=== PATIENT | female | born 1980 | race American Indian/Alaskan Native ===

== ENCOUNTER 2016-08-29 07:04 | Inpatient (IN) | payer OTHER ==
[2016-08-29 08:11] LABS: Basophils % (Auto) 0.3 % (0.0-1.8); Eosinophils % (Auto) 2.9 % (0.0-4.3); Hematocrit 35.6 % (30.3-42.9); Hemoglobin 11.2 gm/dl (10.1-14.3); Mean Corpuscular HGB Conc 32 % (30-34); Mean Corpuscular Hemoglobin 26 pg (28-32); Mean Corpuscular Volume 83 fl (79-97); Platelet Count 209 K/mm3 (140-440); Red Blood Count 4.28 M/mm3 (3.65-5.03); Red Cell Distribution Width 15.2 % (13.2-15.2)
[2016-08-29 08:20] LABS: Anion Gap 15 mmol/L; BUN/Creatinine Ratio 17.14; Blood Urea Nitrogen 12 mg/dL (7-17); Calcium 8.7 mg/dL (8.4-10.2); Carbon Dioxide 25 mmol/L (22-30); Glucose 150 mg/dL (65-100); Potassium 4.2 mmol/L (3.6-5.0); Sodium 141 mmol/L (137-145)
[2016-08-29 09:06] LABS: Bilirubin,Urine NEG (Negative); Blood,Urine SM (Negative); Ketones,Urine NEG (Negative); Leukocyte Esterase,Urine NEG (Negative); Mucus,Urine FEW /HPF; Nitrite,Urine NEG (Negative); Protein,Urine <15 mg/dL mg/dL (Negative); Urobilinogen,Urine < 2.0 mg/dL (<2.0)
--- NOTE | 2016-08-29 09:36 | Emergency Department Report ---
ED Chest Pain HPI - General Chief Complaint: Chest Pain Stated Complaint: CP Time Seen by Provider: 08/29/16 09:34 Source: patient, EMS Mode of arrival: Stretcher Limitations: No Limitations - History of Present Illness Initial Comments: Patient states that her her were watching a movie at 5 AM when she developed substernal chest pressure. She states that she felt like there was a heavy weight on her chest. She had some discomfort in the inner aspect of her right arm radiated almost to the wrist. The chest pain has subsided now. She states that she has some difficulty in breathing. She denies any cough or pleuritic type chest pain. She states that she has had a headache for the last 4-5 days intermittently. She's had no focal weakness numbness photophobia neck discomfort fever or chills. She does not complain of any acute leg swelling. She denies leg pain. The patient is a poor historian. She states that she was having a blood transfusion about a year ago for what I presume to be dysfunctional uterine bleeding. She states that "blood clots went through her lungs". She denies being told she had a blood clot in her legs or a pulmonary embolism. She denies being on anticoagulation after being discharged from the hospital. It sounds like she may have had a nuclear medicine study at one point. It is unknown which type. The patient stated that she was 250 pounds at the time of this test. She states that she has for 30 now. She states that she has gone to the emergency department for chest pain in the past but has never been admitted. The patient can give no specific history of myocardial infarction in her family no specific history of VTE in her family. Complaint: chest pain -: Gradual Onset: during rest Pain Location: substernal Pain Radiation: RUE Severity: moderate Quality: heaviness Consistency: now resolved Improves With: nothing Worsens With: nothing re: dyspnea. denies: nausea, vomting, diaphoresis Other Symptoms: denies: cough, fever, syncope Treatments Prior to Arrival: none Aspirin use within the Past 7 Days: (0) No - Related Data On Oral Contraceptives: No Previous Rx's Medication Instructions Recorded Last Taken Type Ibuprofen [Motrin 600 MG tab] 600 mg PO Q6H PRN #30 tablet 10/16/13 Unknown Rx oxyCODONE /ACETAMINOPHEN [Percocet 2 tab PO Q4H PRN #40 tablet 10/16/13 Unknown Rx 5/325 mg] Antipyrine/Benzocaine 14 ml OT Q3H PRN #1 bottle 12/30/13 Unknown Rx [Antipyrine-Benzocaine Otic Senait] Cephalexin [Keflex] 500 mg PO TID #30 capsule 12/30/13 Unknown Rx Nitrofurantoin [place]/M-Cryst 100 mg PO Q12HR #10 capsule 03/20/14 Unknown Rx [Macrobid] traMADol [Ultram 50 MG tab] 50 mg PO Q6HR PRN #14 tablet 03/20/14 Unknown Rx HYDROcodone/APAP 10-325 [[place] 1 each PO Q6HR PRN #8 tablet 01/09/15 Unknown Rx 10/325] Ondansetron [Zofran Odt] 4 mg SL Q6H PRN #8 tab.rapdis 01/09/15 Unknown Rx Allergies Allergy/AdvReac Type Severity Reaction Status Date / Time ciprofloxacin [From Cipro] AdvReac Itching Verified 09/30/13 10:04 ciprofloxacin HCl AdvReac Itching Verified 09/30/13 10:04 [From Cipro] ibuprofen [From Motrin] AdvReac Itching Verified 09/30/13 10:04 Heart Score - HEART Score History: Moderately suspicious EKG: Normal Age: < 45 Risk factors: 1-2 risk factors Troponin: < normal limit HEART Score: 2 - Critical Actions Critical Actions: 0-3 pts:0.9-1.7%risk of adverse cardiac event.Candidate for discharge ED Review of Systems ROS: Stated complaint: CP Other details as noted in HPI Constitutional: denies: chills, fever Eyes: denies: eye pain, eye discharge, vision change ENT: denies: ear pain, throat pain Respiratory: shortness of breath. denies: cough, wheezing Cardiovascular: chest pain. denies: palpitations Endocrine: no symptoms reported Gastrointestinal: denies: abdominal pain, nausea, diarrhea Genitourinary: denies: urgency, dysuria, discharge Musculoskeletal: denies: back pain, joint swelling, arthralgia Skin: denies: rash, lesions Neurological: denies: headache, weakness, paresthesias Psychiatric: denies: anxiety, depression Hematological/Lymphatic: denies: easy bleeding, easy bruising ED Past Medical Hx - Past Medical History Previous Medical History?: Yes Hx Hypertension: No Hx Diabetes: Yes (BOARDERLINE 08/2013) Hx Renal Disease: No Hx Seizures: No Hx Asthma: No Additional medical history: "heart murmur" "PCOS" "anemia". Morbid obesity - Surgical History Past Surgical History?: Yes Additional Surgical History: D & C - Social History Smoking Status: Never Smoker Substance Use Type: Alcohol - Medications Home Medications: Home Medications Medication Instructions Recorded Confirmed Last Taken Type Ibuprofen [Motrin 600 MG tab] 600 mg PO Q6H PRN #30 tablet 10/16/13 Unknown Rx oxyCODONE /ACETAMINOPHEN [Percocet 2 tab PO Q4H PRN #40 tablet 10/16/13 Unknown Rx 5/325 mg] Antipyrine/Benzocaine 14 ml OT Q3H PRN #1 bottle 12/30/13 Unknown Rx [Antipyrine-Benzocaine Otic Senait] Cephalexin [Keflex] 500 mg PO TID #30 capsule 12/30/13 Unknown Rx Nitrofurantoin [place]/M-Cryst 100 mg PO Q12HR #10 capsule 03/20/14 Unknown Rx [Macrobid] traMADol [Ultram 50 MG tab] 50 mg PO Q6HR PRN #14 tablet 03/20/14 Unknown Rx HYDROcodone/APAP 10-325 [[place] 1 each PO Q6HR PRN #8 tablet 01/09/15 Unknown Rx 10/325] Ondansetron [Zofran Odt] 4 mg SL Q6H PRN #8 tab.rapdis 01/09/15 Unknown Rx ED Physical Exam - General Limitations: Physical Limitation General appearance: alert, in no apparent distress, obese - Head Head exam: Present: atraumatic, normocephalic - Eye Eye exam: Present: normal appearance, PERRL, EOMI. Absent: scleral icterus - ENT ENT exam: Present: normal exam, mucous membranes moist - Neck Neck exam: Present: normal inspection - Respiratory Respiratory exam: Present: normal lung sounds bilaterally. Absent: respiratory distress - Cardiovascular Cardiovascular Exam: Present: regular rate, normal rhythm. Absent: systolic murmur, diastolic murmur, rubs, gallop - GI/Abdominal GI/Abdominal exam: Present: soft, normal bowel sounds. Absent: distended, tenderness, guarding, rebound - Extremities Exam Extremities exam: Present: normal inspection, normal capillary refill. Absent: tenderness, calf tenderness - Back Exam Back exam: Present: normal inspection - Neurological Exam Neurological exam: Present: alert, oriented X3, CN II-XII intact. Absent: reflexes normal - Psychiatric Psychiatric exam: Present: normal affect, normal mood - Skin Skin exam: Present: warm, dry, intact, normal color. Absent: rash ED Course Vital Signs 08/29/16 08/29/16 07:36 07:42 Temperature 97.6 F Pulse Rate 92 H 93 H Respiratory 16 16 Rate Blood Pressure 138/84 O2 Sat by Pulse 99 99 Oximetry - Reevaluation(s) Reevaluation #1: The patient was admitted to the hospitalist service in stable condition. Her chest pain resolved. Obviously her workup will be limited secondary to her kilogram weight. At this time her preliminary tests are negative. 08/29/16 11:21 MICHELL score - Michell Score Age > 65: (0) No Aspirin use within the Past 7 Days: (0) No 3 or more CAD Risk Factors: (0) No 2 or more Angina events in past 24 hrs: (0) No Known CAD with more than 50% Stenosis: (0) No Elevated Cardiac Markers: (0) No ST Deviation Greater than 0.5mm: (0) No MICHELL Score: 0 ED Medical Decision Making - Lab Data Result diagrams: 08/29/16 07:50 08/29/16 07:50 Laboratory Results - last 24 hr 08/29/16 08/29/16 08/29/16 07:50 07:50 08:45 WBC 6.0 RBC 4.28 Hgb 11.2 Hct 35.6 MCV 83 MCH 26 L MCHC 32 RDW 15.2 Plt Count 209 Lymph % (Auto) 38.8 H [place] % (Auto) 10.5 H Eos % (Auto) 2.9 Baso % (Auto) 0.3 Lymph # 2.3 [place] # 0.6 Eos # 0.2 Baso # 0.0 Seg Neutrophils % 47.5 Seg Neutrophils # 2.8 Sodium 141 Potassium 4.2 Chloride 105.0 Carbon Dioxide 25 Anion Gap 15 BUN 12 Creatinine 0.7 Estimated GFR > 60 BUN/Creatinine Ratio 17.14 Glucose 150 H Calcium 8.7 Troponin T < 0.010 Urine Color Yellow Urine Turbidity Clear Urine pH 6.0 Ur Specific Elk 1.024 Urine Protein <15 mg/dl Urine Glucose (UA) Neg Urine Ketones Neg Urine Blood Sm Urine Nitrite Neg Urine Bilirubin Neg Urine Urobilinogen < 2.0 Ur Leukocyte Esterase Neg Urine WBC (Auto) 1.0 Urine RBC (Auto) 3.0 U Epithel Cells (Auto) 1.0 Urine Mucus Few Urine HCG, Qual Negative Laboratory Results - last 24 hr 08/29/16 08/29/16 08/29/16 07:50 07:50 08:45 WBC 6.0 RBC 4.28 Hgb 11.2 Hct 35.6 MCV 83 MCH 26 L MCHC 32 RDW 15.2 Plt Count 209 Lymph % (Auto) 38.8 H [place] % (Auto) 10.5 H Eos % (Auto) 2.9 Baso % (Auto) 0.3 Lymph # 2.3 [place] # 0.6 Eos # 0.2 Baso # 0.0 Seg Neutrophils % 47.5 Seg Neutrophils # 2.8 PT INR APTT D-Dimer Sodium 141 Potassium 4.2 Chloride 105.0 Carbon Dioxide 25 Anion Gap 15 BUN 12 Creatinine 0.7 Estimated GFR > 60 BUN/Creatinine Ratio 17.14 Glucose 150 H Calcium 8.7 Total Bilirubin Direct Bilirubin AST ALT Alkaline Phosphatase Troponin T < 0.010 NT-Pro-B Natriuret Pep Total Protein Albumin Albumin/Globulin Ratio Urine Color Yellow Urine Turbidity Clear Urine pH 6.0 Ur Specific [place] 1.024 Urine Protein <15 mg/dl Urine Glucose (UA) Neg Urine Ketones Neg Urine Blood Sm Urine Nitrite Neg Urine Bilirubin Neg Urine Urobilinogen < 2.0 Ur Leukocyte Esterase Neg Urine WBC (Auto) 1.0 Urine RBC (Auto) 3.0 U Epithel Cells (Auto) 1.0 Urine Mucus Few Urine HCG, Qual Negative 08/29/16 08/29/16 08/29/16 10:01 10:01 10:01 WBC RBC Hgb Hct MCV MCH MCHC RDW Plt Count Lymph % (Auto) [place] % (Auto) Eos % (Auto) Baso % (Auto) Lymph # [place] # Eos # Baso # Seg Neutrophils % Seg Neutrophils # PT 12.8 INR 0.92 APTT 28.8 D-Dimer 159.09 Sodium Potassium Chloride Carbon Dioxide Anion Gap BUN Creatinine Estimated GFR BUN/Creatinine Ratio Glucose Calcium Total Bilirubin < 0.20 Direct Bilirubin < 0.2 AST 14 ALT 14 Alkaline Phosphatase 91 Troponin T < 0.010 NT-Pro-B Natriuret Pep 10.24 Total Protein 7.2 Albumin 3.5 L Albumin/Globulin Ratio 0.9 Urine Color Urine Turbidity Urine pH Ur Specific [place] Urine Protein Urine Glucose (UA) Urine Ketones Urine Blood Urine Nitrite Urine Bilirubin Urine Urobilinogen Ur Leukocyte Esterase Urine WBC (Auto) Urine RBC (Auto) U Epithel Cells (Auto) Urine Mucus Urine HCG, Qual - EKG Data EKG shows normal: sinus rhythm, axis, intervals, QRS complexes, ST-T waves Rate: normal - EKG Data Interpretation: normal EKG - Radiology Data interpreted by me: Consider cardiomegaly on chest x-ray no decompensation Critical care attestation.: If time is entered above; I have spent that time in minutes in the direct care of this critically ill patient, excluding procedure time. ED Disposition Clinical Impression: Hyperglycemia Chest pain Qualifiers: Chest pain type: unspecified Qualified Code(s): R07.9 - Chest pain, unspecified Morbid obesity Qualifiers: Obesity type: due to excess calories Qualified Code(s): E66.01 - Morbid (severe ) obesity due to excess calories Disposition: 09 OP ADMIT IP TO THIS HOSP Is pt being admited?: Yes Does the pt Need Aspirin: Yes Condition: Stable Instructions: Chest Pain (ED) Referrals: JUSTIN RANDALL MD, PHD [Primary Care Provider] - 3-5 Days Time of Disposition: 11:23
--- NOTE | 2016-08-29 10:15 | XRay Report ---
AP CHEST: HISTORY: Hypertension AP view of the chest demonstrates a normal mediastinal and cardiac contour with clear lungs and normal bony and soft tissue structures. IMPRESSION: Unremarkable AP chest.
[2016-08-29 10:32] LABS: INR 0.92 (0.87-1.13)
[2016-08-29 10:33] LABS: Partial Thromboplastin Time 28.8 Sec. (24.2-36.6)
[2016-08-29 10:35] LABS: Alanine Aminotransferase 14 units/L (7-56); Albumin 3.5 g/dL (3.9-5); Albumin/Globulin Ratio 0.9 %; Alkaline Phosphatase 91 units/L (35-129); Bilirubin,Total < 0.20 mg/dL (0.1-1.2); Total Protein 7.2 g/dL (6.3-8.2)
[2016-08-29 10:41] LABS: Bilirubin,Direct < 0.2 mg/dL (0-0.2)
[2016-08-29] MEDS ORDERED: MORPHINE IV PRN (11:14)
[2016-08-29] MEDS ORDERED: ZOFRAN IV PRN (11:14)
[2016-08-29] MEDS ORDERED: TYLENOL PO PRN (11:14)
[2016-08-29] MEDS ORDERED: MILK OF MAGNESIA PO PRN (11:14)
[2016-08-29] MEDS ORDERED: DULCOLAX PR PRN (11:14)
[2016-08-29] MEDS ORDERED: NITROSTAT SL PRN (11:21)
--- NOTE | 2016-08-29 11:59 | Admit Criteria Form ---
Admission Criteria Documentation: CARDIOLOGY GRG Clinical Indications for Admission to Inpatient Care ( Place 'X' for any and all applicable criteria): Hospital admission is needed for appropriate care of the patient because of ANY ONE of the following (1): [ ] I. Hemodynamic instability as indicated by ALL of the following (1)(2)(3) (4)(5) [ ]a) Vital signs or other findings not as expected for chronic patient condition or baseline [ ]b) Instability indicated by ANY ONE of the following: [ ]i) Hypotension [ ]ii) Symptomatic Tachycardia unresponsive to treatment ( e.g., analgesia, fluids, sedation as indicated) [ ]iii) Inadequate perfusion indicated by ANY ONE of the following: [ ] 1) Lactic acidosis (> 2 mmol/L) [ ] 2) New abnormal capillary refill (> 3 seconds) [ ] 3) Reduced urine output [ ] 4) New altered mental status [ ]iv) Orthostatic vital sign changes unresponsive to treatment (e.g., fluids) [ ]v) IV inotropic or vasopressor medication required to maintain adequate blood pressure or perfusion [ ] II. Severe heart failure as indicated by ANY ONE of the following(17)(18) [ ]a) Respiratory distress [ ]b) Hypotension [ ]c) Anasarca (refractory to outpatient therapy) [ ]d) Cardiac arrhythmias of immediate concern [ ]e) Myocardial ischemia [ ] III. Cardiac arrhythmias or findings of immediate concern indicated by ANY ONE of the following (19)(20): [ ] a) Heart rhythms that are inherently dangerous or unstable indicated by ANY ONE of the following (21)(22)(23): [ ] i) Resuscitated ventricular fibrillation or cardiac arrest [ ] ii) Ventricular escape rhythm [ ] iii) Sustained ventricular tachycardia (30 seconds or more of ventricular rhythm at greater than 100 beats per minute) [ ] iv) Nonsustained ventricular tachycardia and ANY ONE of the following: [ ] 1) Suspected cardiac ischemia as cause or consequence of ventricular tachycardia [ ] 2) In setting of acute myocarditis [ ] b) Unstable cardiac conduction defects indicated by ANY ONE of the following(23)(24)(25) [ ] i) Type II second-degree atrioventricular block [ ]ii) Third-degree atrioventricular block [ ]iii) New-onset left bundle branch block with suspected myocardial ischemia [ ]c) Any heart rhythm and ANY ONE of the following (21)(22)(26)(27) (28) [ ] i) Continuous long-term ECG monitoring needed (e.g., initiation of drug requiring monitoring for more than 24 hours) [ ] ii) Patient has automatic implanted cardioverter defibrillator that is repeatedly firing, malfunctioning, or in need of immediate adjustment of settings beyond the scope of ambulatory or observation care [ ]d) Heart rhythms of concern due to ANY ONE of the following: [ ] i) Hypotension [ ] ii) Respiratory distress [ ] iii) Association with other significant symptoms (e.g., bradycardia with syncope or ongoing dizziness, supraventricular tachycardia with chest pain (14)(15)(17) [ ] IV. Monitoring for cardiac contusion beyond the scope of observation care needed [A](30)(31)(32) [ ] V. Surgical or device complication (e.g., valve replacement complication , pacemaker dysfunction) (35)(41)(44)(45)(46) [ ] . Inpatient palliative care needed. [B](49) Also use Inpatient Palliative Care Criteria [ ] VII. Nonbacterial thrombotic (marantic) endocarditis (36)(43)(47)(48) [X] VIII. Cardiology condition, symptom, or finding for which emergency and observation care has failed or are not considered appropriate. [ ] IX. Acute valvular disease requiring inpatient as indicated by ANY ONE of the following (41) [ ]a) Acute valvular regurgitation (42) [ ]b) Noninfectious valvulitis (43) [ ]c) Obstructive valve thrombosis [ ]d) Paravalvular leak [ ]e) Other significant valvular disorder remaining after emergency or observation level of care (as appropriate) [ ]X. Pericardial disease requiring inpatient treatment as indicated by ANY ONE of the following (33)(34)(35)(36)(37) [ ]a) Suspected tamponade (38)(39)(40) [ ]b) Hemopericardium [ ]c) Other significant pericardial disorder remaining after emergency or observation level of care (as appropriate) [ ] XI. Cardiac ischemia beyond scope of emergency and observation care. [ ] XII. Hypertension requiring inpatient treatment as indicated by ANY ONE of the following (6)(7)(8) [ ]a) SBP greater than 220 mm Hg or DBP greater than 120 mmHg despite treatment [ ]b) SBP greater than 140 mm Hg or DBP greater than 100 mm Hg with evidence of acute end organ damage as indicated by ANY ONE of the following [ ] i) Altered mental status [ ] ii) Acute renal failure as indicated by new onset of ANY ONE of the following (9)(10)(11)(12)(13) [ ]1) 3-fold rise in serum creatinine from baseline [ ]2) Serum creatinine greater than 4 mg/dL ( 354 micromoles/L) with acute rise greater than 0.5 mg/dL (44.2 micromoles/L) [ ]3) Reduction of more than 75% in estimated glomerular filtration rate from baseline [ ]4) Estimated glomerular filtration rate less than 35 mL/min/1.73m2 (0.59 mL/sec/1.73m2) in child up to 18 years of age [ ]5) Cessation of urine output indicated by ALL of the following [ ]A. Adequate volume status [ ]B. Inadequate urine output as indicated by ANY ONE of the following [ ]a. Urine output less than 0.3 mL/kg/hr for 24 hours [ ]b. Anuria (urine output less than 0.1 mL/kg/hr) for 12 hours [ ] iii) Aortic dissection [ ] iv) Myocardial Ischemia [ ] v) Left ventricular heart failure [ ]vi) Retinal Hemorrhage [ ]vii) Other significant finding [ ]c) Hypertension in child requiring inpatient treatment as indicated by ALL of the following(14)(15)(16) [ ] i) Outpatient treatment not effective, not available, or not appropriate [ ]ii) SBP or DBP greater than 95th percentile for age [ ]iii) Evidence of acute end organ damage as indicated by ANY ONE of the following [ ]1) Altered mental status [ ]2) Acute renal failure as indicated by new onset of ANY ONE of the following(9)(10)(11)(12)(13) [ ]A. 3-fold rise in serum creatinine from baseline [ ]B. Serum creatinine greater than 4 mg/dL (354 micromoles/L) with acute rise greater than 0.5 mg/dL (44.2 micromoles/L) [ ]C. Reduction of more than 75% in estimated glomerular filtration rate from baseline [ ]D. Estimated glomerular filtration rate less than 35 mL/min/1.73m2 (0.59 mL/sec/1.73m2) in child up to 18 years of age [ ]E. Cessation of urine output indicated by ALL of the following [ ]a. Adequate volume status [ ]b. Inadequate urine output as indicated by ANY ONE of the following [ ]i) Urine output less than 0.3 mL/kg/hr for 24 hours [ ]ii) Anuria ( urine output less than 0.1 mL/kg/hr) for 12 hours [ ]3) Severe headache [ ]4) Visual disturbance [ ]5) Retinal hemorrhage [ ]6) Other significant finding [ ]XIII. Complications of transplanted heart indicated by ANY ONE of the following(61): [ ]a) Acute graft rejection requiring inpatient management (eg, intravenous immunosuppression)(62)(63) [ ]b) Acute graft heart failure indicated by ANY ONE of the following(64): [ ]i) Hemodynamic instability [ ]ii) Cardiac arrhythmias of immediate concern [ ]iii) Pulmonary edema that is very severe (eg, mechanical ventilation needed, imminent or likely, need for 100% oxygen to keep oxygen saturation above 90%) [ ]iv) Pulmonary edema that is persistent as indicated by ALL of the following: [ ]1) New need for oxygen therapy to keep oxygen saturation above 90% (or increased FiO2 need from baseline) [ ]2) Has not improved sufficiently with emergency department or observation care IV diuretics or other heart failure treatments[E] [ ]v) Altered mental status that is severe or persistent [ ]vi) Increased creatinine (new on laboratory test) with reduction of more than 50% in estimated glomerular filtration rate from baseline [ ]vii) Progressively (ongoing) rising creatinine (known from past laboratory test) with reduction of more than 25% in estimated glomerular filtration rate from baseline [ ]viii) Acute renal failure [ ]ix) Acute peripheral ischemia (eg, examination shows pulseless, cool, mottled, or cyanotic extremity) [ ]x) Pulmonary artery catheter monitoring needed [ ]xi) Other sign or symptom of heart failure requiring inpatient treatment (ie, too severe or not responsive to outpatient and observation care treatment) [ ]c) Infection requiring inpatient management (eg, Hemodynamic instability, need for intravenous antimicrobial treatment)(66)(67)(68)(69)(70) [ ]d) Cardiac allograft vasculopathy requiring inpatient management ( eg evidence of cardiac ischemia)(71) [ ]e) Other complication of transplanted heart (eg, stroke, severe pulmonary hypertension, severe valvular dysfunction) requiring inpatient management(72) The original [facility] [employer] content created by [facility] has been revised. The portions of the content which have been revised are identified through the use of italic text or in bold, and [facility] has neither reviewed nor approved the modified material. All other unmodified content is copyright [facility]. Please see references footnoted in the original [facility] edition 2016 Admission Criteria Met: Yes
--- NOTE | 2016-08-29 12:07 | History and Physical Report ---
History of Present Illness Date of examination: 08/29/16 Date of admission: 08/29/16 11:14 Chief complaint: Chest Pain History of present illness: Patient is a 31 years old male with past history of hypertension, obese, heavy menstrual cycle and migraine who presented to the ED complaining of chest pain. Patient states that the pain began today around 6:00AM consisted of a sharp pain that lasted around 1minuts , followed by a dull pain that would last around 5-10 minutes. The pain was located over her left chest area somewhat near her shoulder. The onset of pain came while the patient was watching TV. the pain is substernal and she also feels it under the left side of her chest in the midclavicular region; she describes the quality as a chest heaviness / pressure The patient did experience some tingling in her right arm after the pain ceased. The pain goes and come since started this morning. Once again it was a dull pain, preceded by a short interval of a sharp pain. At first, she felt a pressure pain that was 9/10 but eventually it became more crampy and is currently 1/10. The painful episodes did not increase in intensity or severity during this time. She did not take any medication, she was given Aspirin by EMS but did not help to alleviate the pain. The symptoms exacerbating by movement and relieving by rest.The pain was associated with a feeling of shortness of breath, heart palpitations and and sweating;The patient describes her shortness of breath ;she felt like she could not catch her breath and got worried so she called 911 and they brought her to the ED. She denies nausea or vomiting Past History Past Medical History: diabetes (obese, she was told borderline DM with AC1 >6), hypertension, migraines, other (obese, she was told borderline DM with AC1 >6) Past Surgical History: denies: No surgical history Social history: lives with family, full code. denies: smoking, alcohol abuse, IV drug use Family history: hypertension Medications and Allergies Allergies Allergy/AdvReac Type Severity Reaction Status Date / Time ciprofloxacin [From Cipro] AdvReac Itching Verified 09/30/13 10:04 ciprofloxacin HCl AdvReac Itching Verified 09/30/13 10:04 [From Cipro] ibuprofen [From Motrin] AdvReac Itching Verified 09/30/13 10:04 Home Medications Medication Instructions Recorded Confirmed Last Taken Type Naproxen Sodium [Aleve TAB] 220 mg PO Q8H PRN 08/29/16 08/29/16 Unknown History metFORMIN [Glucophage] 500 mg PO BID 08/29/16 08/29/16 Unknown History Active Meds: Active Medications Acetaminophen (Tylenol) 650 mg PO Q4H PRN PRN Reason: Pain MILD(1-3)/Fever >100.5/BRAND Aspirin (Aspirin) 325 mg PO QDAY DADA Bisacodyl (Dulcolax) 10 mg IA QDAY PRN PRN Reason: Constipation unrelieved by MOM Enoxaparin Sodium (Lovenox) 40 mg SUB-Q QDAY DADA Magnesium Hydroxide (Milk Of Magnesia) 30 ml PO Q4H PRN PRN Reason: Constipation Morphine Sulfate (Morphine) 2 mg IV Q4H PRN PRN Reason: Pain, Moderate (4-6) Nitroglycerin (Nitrostat) 0.4 mg SL .Q5MIN PRN PRN Reason: Chest Pain Ondansetron HCl (Zofran) 4 mg IV Q8H PRN PRN Reason: N/V unrelieved by Reglan Review of Systems Constitutional: sweats, no weight gain, no fever, no chills Ears, nose, mouth and throat: no ear pain, no ear discharge, no tinnitis Breasts: deferred Cardiovascular: chest pain, palpitations, lightheadedness, shortness of breath, no edema, no syncope Respiratory: no cough, no cough with sputum, no excessive sputum Gastrointestinal: no abdominal pain, no nausea, no vomiting Genitourinary Female: no dyspareunia, no dysmenorrhea, no pelvic pain, no flank pain Musculoskeletal: no neck stiffness, no neck pain, no shooting arm pain, no arm numbness/tingling Integumentary: no rash, no pruritis, no redness Neurological: no head injury, no transient paralysis, no paralysis, no weakness Psychiatric: no anxiety, no memory loss, no change in sleep habits Endocrine: no cold intolerance, no heat intolerance, no polyphagia, no excessive thirst, no polydipsia Hematologic/Lymphatic: no easy bruising, no easy bleeding Allergic/Immunologic: no urticaria, no allergic rhinitis Exam - Constitutional Vitals: Temp Pulse Resp BP Pulse Ox 97.6 F 93 H 16 138/84 99 08/29/16 07:36 08/29/16 07:42 08/29/16 07:42 08/29/16 07:36 08/29/16 07:42 General appearance: Present: no acute distress, obese (morbidly obese) - EENT Eyes: Present: PERRL ENT: hearing intact, clear oral mucosa - Neck Neck: Present: supple, normal ROM - Respiratory Respiratory effort: normal Respiratory: bilateral: diminished, negative: rales, rhonchi, wheezing - Cardiovascular Heart rate: 93 Rhythm: regular Heart Sounds: Present: S1 & S2 - Extremities Extremities: no ischemia, pulses symmetrical, No edema Peripheral Pulses: within normal limits - Abdominal General gastrointestinal: Present: soft, non-tender, non-distended, normal bowel sounds Female genitourinary: Present: deferred - Rectal Rectal Exam: deferred - Integumentary Integumentary: Present: clear, warm - Musculoskeletal Musculoskeletal: strength equal bilaterally - Psychiatric Psychiatric: appropriate mood/affect, cooperative - Neurologic Neurologic: CNII-XII intact, moves all extremities Results - Labs CBC & Chem 7: 08/29/16 07:50 08/29/16 07:50 - Imaging and Cardiology Chest x-ray: image reviewed (Unremarkable AP chest) Assessment and Plan 1. Chest pain/atypical chest pain We will admit to telemetry floor, will check serial 12-lead EKG, serial cardiac enzymes the case CK-MB and troponin I Stress test ordered but Nuclear medicine notified us that unable to preform stress test on patient because of morbid obesity Symptomatic management with aspirin , beta blockers , ger inhibitors , nitrates and statins ,IV fluid hydration Patient's symptoms do not improve with symptomatic management , we will consult cardiology for further recommendations 2. Migraine; stable We will resume on home medicine Naproxen 4. Morbid Obesity: Patient counseled dietary modification , exercise as tolerated and weight reduction Nutrition consult , patient may benefit by outpatient bariatric surgical evaluation for weight reduction program upon discharge. Unable to do further evaluation by stress test in view of morbid obesity 5. Possible obstructive sleep apnea; oxygen, titrate O2 sats more than 90%, CPAP at night Patient may need outpatient sleep study to rule out obstructive sleep apnea 6. DVT/GI prophylaxis Lovenox/Protonix Patient full code Plan of care discussed with the patient ER physician and the nurse
[2016-08-29] MEDS: COREG PO SCH (21:57)
[2016-08-30 08:24] LABS: Basophils % (Auto) 0.6 % (0.0-1.8); Eosinophils % (Auto) 3.1 % (0.0-4.3); Hematocrit 34.9 % (30.3-42.9); Mean Corpuscular HGB Conc 32 % (30-34); Mean Corpuscular Hemoglobin 26 pg (28-32); Mean Corpuscular Volume 83 fl (79-97); Platelet Count 216 K/mm3 (140-440); Red Blood Count 4.21 M/mm3 (3.65-5.03); Red Cell Distribution Width 15.8 % (13.2-15.2); White Blood Count 6.5 K/mm3 (4.5-11.0)
[2016-08-30 08:46] LABS: Anion Gap 17 mmol/L; Blood Urea Nitrogen 9 mg/dL (7-17); Calcium 8.3 mg/dL (8.4-10.2); Carbon Dioxide 23 mmol/L (22-30); Chloride 104.5 mmol/L (98-107); Cholesterol 172 mg/dL (50-199); Glucose 104 mg/dL (65-100); HDL Cholesterol 43 mg/dL (40-59); LDL Cholesterol,Direct 113 mg/dL (50-130); Potassium 3.7 mmol/L (3.6-5.0); Sodium 141 mmol/L (137-145); Triglycerides 83 mg/dL (2-149)
[2016-08-30] MEDS ORDERED: ZESTRIL PO SCH (10:00)
[2016-08-30] MEDS ORDERED: ASPIRIN PO SCH (10:00)
[2016-08-30] MEDS ORDERED: LOVENOX SUB-Q SCH (10:00)
[2016-08-30] MEDS: COREG PO SCH (10:54)
--- NOTE | 2016-08-30 12:00 | Discharge Summary ---
Providers - Providers Date of Admission: 08/29/16 11:14 Date of discharge: 08/30/16 Attending physician: JAVED MONCADA Primary care physician: JUSTIN RANDALL Hospitalization Reason for admission: Chest pain/chest pressure Condition: Stable Pertinent studies: Chest x-ray; normal study Hospital course: Final diagnosis; Atypical chest pain Possible gastroesophageal reflux disease Possible costochondritis Diet-controlled diabetes mellitus Hypertension Morbid obesity Brief history and hospital course: 31-year-old morbidly obese -[place] female patient with significant past medical history of hypertension and migraine headaches borderline diabetes mellitus was admitted through emergency room with atypical chest pain and chest pressure Patient was initially evaluated and admitted to the hospital symptomatically managed, MT screen 3 including CK CK-MB and troponin I was negative, EKG did not show any acute ST-T changes Patient was scheduled for Lexiscan stress test, however in view of her morbid obesity with BMI of 73.4, could not get the stress test due to technical reasons. Patient was symptomatically managed, today she is comfortable in bed, without any symptoms Denies chest pain shortness of breath or chest pressure, alert awake oriented 3 White signs stable, patient is ambulatory and tolerating oral nutrition Has mild elevation of LDL, advised that she modification and exercise as tolerated and weight reduction and also low dose Lipitor Patient's chest pain may be atypical noncardiac in view of negative EKG and negative cardiac enzymes However patient is strongly advised to see a analytics manager as outpatient for further evaluation of her chest pain and pressure Patient also encouraged dietary modification and exercise as tolerated and weight reduction when medically stable Patient also advised to see bariatric surgery as outpatient for evaluation for weight reduction program as needed Patient verbalized understanding The time of discharge patient is hemodynamically and clinically stable Patient also advised to contact M.D. or go to emergency room should she have recurrent chest pain or chest pressure Disposition: DC-01 TO HOME OR SELFCARE Time spent for discharge: 31 min Core Measure Documentation - Palliative Care Palliative Care/ Comfort Measures: Not Applicable - Core Measures Any of the following diagnoses?: none Exam - Constitutional Vitals: Temp Pulse Resp BP Pulse Ox 98.2 F 72 18 126/75 99 08/30/16 08:56 08/30/16 08:56 08/30/16 08:56 08/30/16 08:56 08/30/16 09:35 General appearance: Present: no acute distress, well-nourished, obese (morbidly obese) - EENT Eyes: Present: PERRL, EOM intact - Neck Neck: Present: supple, normal ROM - Respiratory Respiratory effort: normal Respiratory: bilateral: diminished, negative: rales, rhonchi, wheezing - Cardiovascular Rhythm: regular Heart Sounds: Present: S1 & S2 - Extremities Extremities: no ischemia, pulses intact, pulses symmetrical - Abdominal General gastrointestinal: Present: soft, non-tender, non-distended, normal bowel sounds - Integumentary Integumentary: Present: clear, warm - Musculoskeletal Musculoskeletal: strength equal bilaterally - Psychiatric Psychiatric: appropriate mood/affect, cooperative - Neurologic Neurologic: CNII-XII intact, moves all extremities Plan Activity: no restrictions Diet: low cholesterol, low salt Additional Instructions: Recommend outpatient bariatric surgical evaluation for weight reduction program. If you have recurrent chest pain or shortness of breath contacting MD or go to emergency room Follow up with: JUSTIN RANDALL MD, PHD [Primary Care Provider] - 3-5 Days [facility]ERT[facility]LL[facility] MD [Staff Physician] - 7 Days Prescriptions: RX: AtorvaSTATin [Lipitor] 20 mg PO QHS #30 tablet Famotidine [Pepcid] 20 mg PO BID #20 tablet
[2016-08-30 14:08] VITALS: BP 127/71
--- NOTE | 2016-08-30 16:48 | Query- Chest Pain ---
Romeo Amaya Wilbert Date: 08/30/16 Information Lead/CDS:____Trent Chaunceyprem Phone#:____[phone] Exercise your independent professional judgment when responding to query. Questions asked do not imply a particular answer is desired or expected. We greatly appreciate your clarification on this issue. Clinical Documentation States: 36 year old female was admitted on 08/29/16. The H&P states " Chest pain/atypical chest pain We will admit to telemetry floor, will check serial 12-lead EKG, serial cardiac enzymes the case CK-MB and troponin I Stress test ordered but Nuclear medicine notified us that unable to preform stress test on patient because of morbid obesity Symptomatic management with aspirin , beta blockers , ger inhibitors , nitrates and statins ,IV fluid hydration Patient's symptoms do not improve with symptomatic management , we will consult cardiology for further recommendations " Please document the etiology of Chest Pain: [ ] Myocardial Infarction [ ] Pneumonia [ ] Mediastinitis [ ] Costochondritis [ ] Pulmonary Embolism [ ] Coronary Artery Disease [x ] GERD [ x] Other:_Atypical chest pain [ ] Comment/Explanation: Present on Admission: [ ] Yes (Y) [x ] Clinically undeterminable (W) [ ] No(N) Please document response in your Progress Notes and/or Discharge Summary and indicate if the condition was present on admission. BARRY
== END 2016-08-30 18:45 | disposition home or self-care (01) | DRG 313 ==
LOC: ED 07:04 → 4A 11:14
PROVIDERS: ADMIT Internal Medicine; ATTEND Internal Medicine
DX: R07.89 Other chest pain (principal); K21.9 Gastro-esophageal reflux disease without esophagitis; E66.01 Morbid (severe) obesity due to excess calories; Z68.45 Body mass index [BMI] 70 or greater, adult; G47.33 Obstructive sleep apnea (adult) (pediatric); G43.909 Migraine, unspecified, not intractable, without status migrainosus; E11.65 Type 2 diabetes mellitus with hyperglycemia; I10 Essential (primary) hypertension; M94.0 Chondrocostal junction syndrome [Tietze]; Z88.1 Allergy status to other antibiotic agents; Z88.6 Allergy status to analgesic agent; Z79.899 Other long term (current) drug therapy; Z82.49 Family history of ischemic heart disease and other diseases of the circulatory system
CPT/HCPCS: 36415; 71010; 80048; 80061; 80074; 81001; 81025; 82962; 83036; 83880; 84484; 85025; 85379; 85610; 85730; 93005; 93010; 99285; A9270-GY; J1650